=== PATIENT | male | born 1945 | race Caucasian/White ===

== ENCOUNTER → 2023-05-17 09:11 | Outpatient (REF) | payer OTHER, SELFPAY | LOC: HWRAD 09:11 | PROVIDERS: ATTENDING PHYSICIAN Family Medicine | DX: G62.9 Polyneuropathy, unspecified (principal) | CPT/HCPCS: 73630 ==

== ENCOUNTER 2023-11-30 07:09 | Emergency (ER) | payer OTHER, SELFPAY ==
[2023-11-30 07:11] VITALS: BP 124/95
--- NOTE | 2023-11-30 07:34 | ED.GENMED ---
Addendum entered and electronically signed by Johnny Sesay DO 12/02/23 06:59:
Patient reports stomach discomfort, since starting doxycycline. Will change to clindamycin. Follow-up with Dr. Hinds.
Original Note:
History of Present Illness
General
Chief Complaint: Skin Problem
Source: patient
Time Seen by Provider: 11/30/23 07:20
History of Present Illness
History of Present Illness:
78-year-old male presenting to the emergency department after noticing an erythematous lump on his back over the last 2 days. Patient states that he has had the lump for some years but it never bothered him. He believes that starting a new job and
working in a hot unair conditioned environment is the likely culprit. Today he noticed a little bit more erythema along the lateral aspect of the lump which is what prompted him to come in. He denies any fevers, chills, rigors. No history of
diabetes. No other concerns at this time. Patient does state that he has had 1 previous sebaceous cyst removed previously
Past History
Past History
ED Past Medical History: GERD and HTN
ED Past Surgical History: Cholecystectomy and Orthopedic
Social History
Tobacco: Non-smoker
Alcohol: Occasional
Drug: None
Personal:
Living: with family
Employment: Employed ([employer])
Review of Systems
Review of Systems
All Other Systems: ROS reviewed and negative except as documented in HPI and ROS
Phy Exam
Physical Exam
Physical Exam:
GENERAL: Alert , in no apparent distress
EYE: conjunctiva clear
Head: Normocephalic atraumatic
NECK: Supple,
ENT: mmm.
LUNGS: no acute respiratory distress
NEUROLOGICAL: Alert and oriented
SKIN: Warm and dry, large 2-1/2 to 3 cm sebaceous cyst to the left upper back along the distal portion of the scapula. The lateral aspect is erythematous and there is small drainage of sebaceous material that was expressed. Mildly tender to
palpation.
MUSCULOSKELETAL: well perfused.
PSYCH: Normal and appropriate interaction.
Scores
Heart Failure Risk
Heart Failure Risk Score: Not Applicable
Heart Score for Chest Pain Patients
STEMI patient?: Not applicable
Withdrawal Assessment of Alcohol
Withdrawal Assessment Completed?: Not applicable
Course
Vital Signs
Initial and Last Documented VS:
Initial Vital Signs
Temp Pulse Resp BP Pulse Ox
97.7 F 53 16 124/95 96
11/30/23 07:11 11/30/23 07:11 11/30/23 07:11 11/30/23 07:11 11/30/23 07:11
Last Documented Vital Signs
Temp Pulse Resp BP Pulse Ox
97.7 F 53 16 124/95 96
11/30/23 07:11 11/30/23 07:11 11/30/23 07:11 11/30/23 07:11 11/30/23 07:11
MDM/Problems Addressed
Differential Diagnosis Includes:
Sebaceous cyst, abscess, cellulitis
MDM/Problems Addressed:
78-year-old male presenting to the emergency department for evaluation of what appears to be an infected sebaceous cyst. Notes he has had a lump there for many years. Attributes the infection to starting a new job and working in a hot environment
for many hours. His exam does reveal infected sebaceous cyst. Given the size of the cyst I did feel it would be best served being removed by either general surgery or dermatology but I did offer incision and drainage with attempt at capsule
removal however patient declines and prefers to follow-up with general surgery with whom he is seen in the past. In the meantime we will place patient on doxycycline. Advised on warm compresses, NSAIDs/Tylenol as needed for pain. Patient aware of
return precautions to the ER but is otherwise stable for discharge home.
*Pulse Oximetry
Patient hypoxic: no
*Critical Care Note
Total Time (30-74mins, 75-104mins- exclusive of procedures): Not Applicable
ED Attending Note
-
Portions of this chart may have been created with voice recognition software.� Occasional wrong word or��sound alike� substitutions may have occurred due to the inherent limitations of voice recognition software.
Discharge Plan
Departure
Patient Disposition: Home (Routine Discharge)
Date of Disposition: 11/30/23
Time of Disposition: 07:34
Patient with high blood pressure during this ER visit?: No
Discharge Problem:
Infected sebaceous cyst
Instructions: Epidermal Cyst (DC)
Prescriptions:
New
doxycycline hyclate 100 mg tablet
100 mg PO BID 10 Days Qty: 20 0RF
No Action
omeprazole magnesium [Prilosec OTC] 20 MG tablet,delayed release (DR/EC)
20 mg PO DAILY
multivitamin [One Daily Multivitamin] 1 EACH tablet
1 ea PO DAILY
aspirin 81 MG tablet,delayed release (DR/EC)
81 mg PO DAILY
lisinopril 10 MG tablet
10 mg PO DAILY
celecoxib [Celebrex] 200 mg Capsule
200 mg PO DAILY
solifenacin [Vesicare] 5 mg Tablet
5 mg PO HS
Myrbetriq 50 mg Tablet Extended Release 24 Hr
50 mg PO DAILY
acetaminophen [Tylenol Extra Strength] 500 mg tablet
1,000 mg PO Q6HPRN PRN (Reason: mild pain) Qty: 1 0RF
oxycodone 5 mg tablet
5 mg PO Q4HPRN PRN (Reason: breakthrough/severe pain) Qty: 10 0RF
Referrals:
Van Penny DO [Family Provider] -
Alec Hinds MD [Active] -
Interventions
Interventions:
*Risk Screen - Suicide Last Done: 11/30/23 07:11
*General Assessment Last Done: 11/30/23 07:11
*Neglect/Abuse Screening Last Done: 11/30/23 07:11
ED- Fall Risk Assessment Last Done: 11/30/23 07:20
*Nursing Disposition Last Done: 11/30/23 07:20
ED-Skin Assessment Last Done: 11/30/23 07:20
Discharge Date and Time
Discharge Date/Time: 11/30/23 07:25
Print Language: MALTESE
== END 2023-11-30 07:25 | disposition home or self-care (01) ==
LOC: EMR 07:09
PROVIDERS: EMERGENCY PHYSICIAN Emergency Medicine; FAMILY PHYSICIAN Family Medicine
DX: L08.9 Local infection of the skin and subcutaneous tissue, unspecified (principal); L72.3 Sebaceous cyst; K21.9 Gastro-esophageal reflux disease without esophagitis; I10 Essential (primary) hypertension
CPT/HCPCS: 99282

== ENCOUNTER 2024-10-25 14:50 | Observation (INO) | payer OTHER, SELFPAY ==
[2024-10-25] VITALS (7 sets, daily range): BP systolic 152–190; BP diastolic 81–115; BMI 30.2; BMI 29.9
--- NOTE | 2024-10-25 11:13 | ED.GENMED ---
History of Present Illness
General
Chief Complaint: Numbness
Source: patient and family
Exam Limitations: none
Time Seen by Provider: 10/25/24 10:53
Nursing documentation reviewed up to this point in time: agreed with
History of Present Illness
History of Present Illness:
79-year-old male hypertension peripheral neuropathy presents with left arm numbness and weakness started around 930 lasted around 30 minutes with visual changes, unable to write clearly with his affected left hand, yesterday he had pain in his neck
did not think too much of it, suffers from hypertension is on lisinopril, not on aspirin states that the physician told him it could interact with some of his other meds, he is now is feeling Hydrocet better no headache no nausea no vomiting no arm
or leg weakness no prior TIA or stroke
If applicable-neuro sx onset
Onset of symptoms known: Yes
Date of onset of symptoms: 10/25/24
Time of onset of symptoms: 09:29
Past History
Past History
ED Past Medical History: GERD and HTN
ED Past Surgical History: Appendectomy, Cholecystectomy and Orthopedic
Social History
Tobacco: Non-smoker
Alcohol: None
Drug: None
Personal:
Living: with family
Employment: Employed ([employer])
Review of Systems
Review of Systems
All Other Systems: Not applicable
Constitutional: Denies fever or fatigue
EENT: Reports no symptoms
Respiratory: Reports no symptoms
Cardiac: Reports no symptoms
ABD/GI: Reports no symptoms
Musculoskeletal: Reports neck pain (Yesterday)
Neurological: Reports weakness, numbness and other (Visual changes); Denies headache
Hematologic/Lymphatic: Reports no symptoms
Psychiatric: Reports no symptoms
Phy Exam
Physical Exam
Physical Exam:
Physical Exam
General: no apparent distress, not acutely ill
Neck: No jaundice
Heart: s1/s2 regular rate and rhythm, no murmur. equal radial pulses.
Lungs: no acute respiratory distress. clear bilaterally
Abdomen: Nontender
Neuro: alert and oriented. no focal neurological deficits
Skin: no rash
Psychiatric: well kept. interactive and cooperative
Extremities: no edema.
Course
Orders/Labs/Results
Orders:
Orders
10/25/24 11:05
EKG [Electrocardiogram (*1)] Urgent
Reason for Study: Chest Pain
10/25/24 11:07
C-Reactive Protein Urgent
Comment: ADD ON
Complete Blood Count/With Diff Urgent
Comprehensive Metabolic Panel Urgent
Erythrocyte Sed Rate Urgent
Comment: ADD ON
Troponin I Urgent
Urinalysis Reflex To Culture Urgent
Date Specimen was Collected: 10/25/24
Time Specimen was Collected: 11:05
Urine Microscopic Reflex Cult Urgent
Urine Culture Urgent
CASSANDRA Source: U
Specimen Description:
Date Specimen was Collected: 10/25/24
Time Specimen was Collected: 11:05
10/25/24 11:13
CT Head & Neck Angio W/wo IV Urgent
Comment:
Reason For Exam: Visual change left arm weakness
10/25/24 14:15
Aspirin 325 mg PO NOW STA
Clopidogrel Bisulfate [Plavix] 300 mg PO NOW STA
10/25/24 14:31
NEUROLOGY CONSULT Routine
Consulting Provider: Reny Bar
Was physician already notified: Yes
Reason for consult: TIA
Clopidogrel Bisulfate [Plavix] 300 mg PO NOW STA
10/25/24 14:32
Admit/Transfer Patient As Directed
Co-Sign Provider:
Level of Care: Observation services
Assign to:: Telemetry
Physician / Group: hospitalist
Diagnosis: TIA
Reason for Telemetry: CVA/TIA
Date to Stop Telemetry: 10/28/24
Time to Stop Telemetry: 11:00
PRN Pain Medication Management As Directed
May give lesser potent ordered pain med per pt: Yes
preference::
Protocol:: Medication orders for pain may be administered in a
manner that supports deferring to patient preference
when the pt is:
- Requesting an ordered lesser potent pain medication.
Least to most potent pain medications are defined
as: acetaminophen < NSAID < tramadol < opioids
(morphine, oxycodone, hydromorphone).
- Requesting a lesser dose of the same medication IF
ORDERED.
- Requesting a less intrusive route of administration
if both routes are prescribed by the provider (PO <
IV).
10/25/24 14:34
Code Status As Directed
Resuscitation Status: Full Code
10/25/24 14:37
Add On- LAB Urgent
Tests Added?: ESR, CRP
10/25/24 14:41
Echo 2D MMode Color/Doppler Routine
Reason for Study: TIA
MRI Brain [MR Brain Without Contrast] Routine
Comment:
Reason For Exam: TIA
Recent pill cam endoscopy?: No
10/25/24 14:46
HydrALAZINE [Apresoline] 5 mg IV Q6HPRN PRN
10/25/24 16:49
Acetaminophen [Tylenol/Feverall] 650 mg RECTAL Q4HPRN PRN
Acetaminophen [Tylenol] 650 mg PO Q4HPRN PRN
10/25/24 16:49
Case Management Consult ONCE
Case Management Consult: Discharge Planning
Comment: stroke/tia
DIETARY IP CONSULT Routine
Reason for Consult: stroke/TIA
Training Specialist Urgent
Complete Blood Count/No Diff Routine
PTT Routine
Prothrombin Time Routine
Activity As Directed
Activity Level: Out of Bed-Early Mobility
NIH Stroke Scale As Directed
Directions: Per protocol
Comment: every shift and with any change in condition or mental status
Neurological Checks As Directed
Frequency: q4h
Additional Instructions:: q4h x 24h upon admission to the floor, then qshift & with any change in condition
and mental status
Patient Education As Directed
Type: Stroke education packet
Comment: provide to patient and family
Pneumatic Compression Sleeves As Directed
Type: Knee high
Swallow Screening CVA/TIA ONLY As Directed
Comment: NPO until swallowing screening completed
If patient FAILS swallow screening:: NPO, Speech Therapy consult, Aspiration Precautions
If patient PASSES swallow screening, diet:: Regular
Vital Signs As Directed
Frequency: Per unit guidelines
Ot Eval And Treat Routine
Pt Eval And Treat Routine
Activity Level: Out of Bed-Early Mobility
Speech Therapy Eval & Treat Routine
DX Deep Vein Thrombosis Video Routine
10/25/24 18:00
Atorvastatin [Lipitor] 80 mg PO QPM
10/25/24 22:00
solifenacin [Vesicare] 5 mg PO HS
10/26/24 06:00
Cardiovascular Evaluation IN AM
Comprehensive Metabolic Panel IN AM
Folate IN AM
Glycohemoglobin (HgbA1c) IN AM
Magnesium IN AM
TSH Reflex To Free T4 IN AM
Vitamin B12 IN AM
Vitamin D, 25-OH IN AM
10/26/24 08:00
Aspirin Chewable [Low Strength Aspirin] 81 mg PO DAILY
Clopidogrel Bisulfate [Plavix] 75 mg PO DAILY
Lisinopril [Zestril] 10 mg PO DAILY
omeprazole magnesium [Prilosec OTC] 20 mg PO DAILY
10/28/24 11:00
DC Protocol for Telemetry ONCE
Abnormal Lab Results
10/25/24
11:07
Absolute Neuts (auto) 7.7 H 10^3/uL
(1.4-6.5)
Absolute Monos (auto) 0.7 H 10^3/uL
(0.1-0.6)
Lymphocytes % 19.9 L %
(20.5-51.1)
Chloride 110 H mmol/L
(98-107)
Glucose 123 H mg/dl
(70-99)
Ur Occult Blood Reflex 1+ A
(Negative)
Leukocyte Esterase Rfl 1+ A
(Negative)
Urine Bacteria (Reflex) Few A
(Negative)
Urine Albumin (Reflex) 2+ A
(Neg - Trace)
10/25/24 11:07
10/25/24 11:07
Vital Signs
Initial and Last Documented VS:
Initial Vital Signs
Temp Pulse Resp BP Pulse Ox
98.4 F 77 18 169/115 96
10/25/24 10:24 10/25/24 10:24 10/25/24 10:24 10/25/24 10:24 10/25/24 10:24
Last Documented Vital Signs
Temp Pulse Resp BP Pulse Ox
97.8 F 67 18 186/101 95
10/25/24 17:06 10/25/24 17:06 10/25/24 17:06 10/25/24 17:06 10/25/24 17:06
MDM/Problems Addressed
Differential Diagnosis Includes:
TIA CVA mass seizure Clayton's paralysis peripheral neuropathy
MDM/Problems Addressed:
Left arm numbness and weakness visual change
Chronic conditions affecting care: HTN
Acute Exacerbation and/or Progression of Chronic Illness: HTN
*Pulse Oximetry
SaO2: 96
Oxygen Mode of Delivery: Room air
Patient hypoxic: no
*EKG
Interpreted by ED Provider?: Yes
Interpretation: normal
Comparison EKG: no comparison EKG present
Heart Rate: 78
Rate: normal
Rhythm: sinus
Ischemia: no ischemia
*Film Vault Supervisor Interpretation
Rate: normal
Interpretation: normal
Heart Rate: 78
Rhythm: sinus
*Critical Care Note
Total Time (30-74mins, 75-104mins- exclusive of procedures): Not Applicable
ED Attending Note
-
Portions of this chart may have been created with voice recognition software.� Occasional wrong word or��sound alike� substitutions may have occurred due to the inherent limitations of voice recognition software.
Discharge Plan
Departure
Patient Disposition: Admit
Date of Disposition: 10/25/24
Time of Disposition: 14:26
Admit to: Telemetry
Presentation/result/management discussed w/ accepting MD/DO: Hospitalist
Patient with high blood pressure during this ER visit?: Yes
Condition: Good
Discharge Problem:
Brain TIA
Interventions
Interventions:
*Risk Screen - Suicide Last Done: 10/25/24 10:24
*General Assessment Last Done: 10/25/24 10:24
*Neglect/Abuse Screening Last Done: 10/25/24 10:24
*ED- Fall Risk Assessment Last Done: 10/25/24 12:00
*Nursing Disposition Last Done: 10/25/24 16:35
ED- Neurological Assessment Last Done: 10/25/24 11:06
ED Swallowing Screen Last Done: 10/25/24 11:06
Discharge Date and Time
Discharge Date/Time: 10/25/24 16:35
[2024-10-25 11:28] LABS: Hematocrit 46.2 % (39.0-52.0); Hemoglobin 15.6 g/dL (13.0-18.0); Mean Corp Hgb Conc. 33.8 g/dL (33.0-37.0); Mean Corpuscular Volume 89.2 fL (80.0-94.0); Platelet Count 249 10^3/uL (130-400); Red Cell Dist. Width 14.3 % (11.5-14.5)
[2024-10-25 11:39] LABS: Urine Character Clear (Clear)
[2024-10-25 11:51] LABS: Urine Red Blood Cell 0-2 /HPF (0-2); Urine Squamous Cell 0-2 /LPF (Few); Urine White Cell 0-2 /HPF (0-5)
[2024-10-25 11:56] LABS: ALT (SGPT) 16 U/L (0-50); AST (SGOT) 20 U/L (17-59); Albumin 4.4 g/dl (3.5-5.0); Alkaline Phosphatase 52 U/L (38-126); Blood Urea Nitrogen 13 mg/dl (9-20); Calcium 9.6 mg/dl (8.4-10.2); Carbon Dioxide 26 mmol/L (22-30); Chloride 110 mmol/L (98-107); Estimated Creatinine Clearance 89 ml/min; Glucose 123 mg/dl (70-99); Potassium 4.6 mmol/L (3.5-5.1); Sodium 140 mmol/L (135-145); Total Protein 6.6 g/dl (6.3-8.2); eGFR > 60.00
[2024-10-25 11:58] LABS: Nucleated Red Blood Cells % 0 % (-)
[2024-10-25 12:07] LABS: Troponin I < 0.012 ng/ml
--- NOTE | 2024-10-25 14:23 | CON.NEURO ---
Consultation
Order
Date of Consultation: 10/25/24
Requesting Provider: Bennie De Jesus MD
Reason for Consult: TIA
Neurology Consultation Note.
HPI: This is a 79-year-old man who presented to [facility] on 10/25/2024 with transient sensory, motor and visual deficits.
The patient reports that while watching TV, he experienced tightness in his left arm, described as feeling like wearing a blood pressure cuff, accompanied by pins and needles sensation. Simultaneously, he noticed blurry vision at the bottom of his
visual field, possibly on the left side. The tightness lasted for approximately 10 minutes before subsiding, but the pins and needles sensation persisted, along with weakness in his left hand. He attempted to write a note but found his left hand to
be weak.
The patient states that the weakness in his left hand lasted for 35-45 minutes, while the tightness was present for only 10 minutes. He denies any involvement of his left leg, speech difficulties, or other symptoms. The visual disturbance resolved
concurrently with the arm tightness. He reports no associated headaches or chest tightness. The patient emphasizes that the tingling affected all fingers of his left hand and was different from his previous experiences with carpal tunnel syndrome.
His gait remained normal throughout the episode.
No reports of headaches, history of seizures with similar episodes in the past.
Regarding medications, the patient was previously taking baby aspirin but was asked to discontinue it, though he cannot recall the reason.
ER VS: 169/115-170/81, 53, afebrile
EKG: Sinus rhythm with first degree of AV block
Labs: Glucose 123, normal sodium, creatinine, WBCs.
UA positive for leukocyte esterase, bacteria
CT head wo contrast-no acute abnormalities.
CTA head/neck�no hemodynamically significant stenosis, diminished flow in the right proximal M2 branch suggesting stenosis
PMH: Prostate cancer, polyneuropathy, A-Fib, right iliac artery aneurysm HTN, DLP, GERD, SALVATORE, BPH, SNHL, burnham's esophagus, GIB, diverticulosis
PSH: Left pinky and nerve decompression at the wrist L TKA, appendectomy, cholecystectomy, tonsillectomy, Right inguinal/femoral hernia repair, umbilical hernia repair
SH: , non-smoker, works at [employer]
FH: Father�dementia, in his 70s, mother had end-stage renal disease
All:NKDA
ROS: Constitutional: Negative. Negative for chills, fever and unexpected weight change.
HEENT: Positive for chronic hearing impairment
Eyes: Positive for blurry vision in the lower left field, resolved.
Respiratory: Negative for cough, choking and shortness of breath.
Cardiovascular: Negative for chest pain, palpitations and leg swelling.
Gastrointestinal: Negative for abdominal pain and vomiting.
Endocrine: Negative. Negative for cold intolerance.
Genitourinary: Positive for urinary urgency and frequency
Musculoskeletal: Positive for soreness in both knees.
Skin: Negative for rash.
Allergic/Immunologic: Negative. Negative for immunocompromised state.
Neurological: Positive for transient left arm motor and sensory deficit, chronic distal paresthesias
Psychiatric/Behavioral: Negative for behavioral problems, confusion and hallucinations.
General: Well developed. In no acute distress.
Cardio: Regular rate and rhythm without murmur. Extremities are without cyanosis or edema.
Neuro:
Mental Status: Alert, oriented to person, place, and date. Normal attention and recall. Good fund of knowledge. Follows complex requests across the midline. Comprehension, naming, and repetition intact.
Cranial Nerves: Pupils are equally round and reactive to light. EOMs full. Visual davey full to confrontation. No ptosis. No nystagmus. V1-V3 intact to light touch and pinprick bilaterally, symmetric. Face symmetric. Poor hearing AU. The
palate elevated well. SCMs and traps 5/5. Tongue midline. No dysarthria.
Motor: Normal bulk and tone. No pronator or arm drift. Strength 5/5 throughout. No clonus.
Reflexes: 2+ throughout the upper extremities and trace knees. 0/2 in AJs. Plantar responses flexor bilaterally.
Sensory: Absent vibration at the toes and ankles and preserved in the knees. No extinction to DSS
Coordination: No dysmetria or tremor.
Gait: deferred
Assessment and Plan:
I. TIA. Right proximal M2 stenosis.
II. Hypertensive urgency
III. Distal large/small fiber polyneuropathy
-Continue Telemetry monitoring
-Avoid cerebral hypoperfusion in view of right M 2 stenosis.
-Cautious lowering of BP by approximately 15 % during the first 24 hours is SBP >220 mmHg or diastolic blood pressure >120 mmHg
-Restart antihypertensive medications if BP>140/90 mmHg and neurologically stable in 24 to 48 hours after stroke onset
- DAPT for 21 days.
- Brain MRI without salvatore
- TTE
- Lipitor 40 mg QHS.
- Please check HbA1C, LDL.
- Will consider routine EEG based on clinical course
- DVT prophylaxis.
I personally reviewed all radiology and labs along with past medical records pertinent to current medical problems. Total time spent in patient care is 60 minutes.
Thank you for allowing us to participate in the care of this patient. We will continue to follow. Please do not hesitate to contact us with any questions or concerns.
Subjective/Objective
Subjective Data
Date of Service: October 25, 2024
Objective Data
Vital Signs
Temp Pulse Resp BP Pulse Ox
36.9 C 77 18 170/81 96
10/25/24 10:24 10/25/24 10:24 10/25/24 10:24 10/25/24 11:00 10/25/24 11:14
Lab Results
10/25/24 11:07
10/25/24 11:07
Sodium 140 mmol/L (135-145) 10/25/24 11:07
Potassium 4.6 mmol/L (3.5-5.1) 10/25/24 11:07
BUN 13 mg/dl (9-20) 10/25/24 11:07
Glucose 123 mg/dl (70-99) H 10/25/24 11:07
Calcium 9.6 mg/dl (8.4-10.2) 10/25/24 11:07
Patient Allergies
cat dander Allergy (Verified 10/25/24 10:24)
drippy eyes nose
pollen extracts Allergy (Verified 10/25/24 10:24)
hayfever
Medications
-
Active Medications
Generic Name Dose Route Start Last Admin
Trade Name Freq PRN Reason Stop Dose Admin
Aspirin 325 mg 10/25/24 14:15
Aspirin 325 Mg Tablet PO 10/25/24 14:16
NOW STA
Clopidogrel Bisulfate 300 mg 10/25/24 14:15
Clopidogrel 300 Mg Tablet PO 10/25/24 14:16
NOW STA
Home Medications
�Medication �Instructions �Recorded
omeprazole magnesium 20 mg 20 mg PO DAILY 06/15/12
tablet,delayed release (Prilosec
OTC)
multivitamin (One Daily 1 ea PO DAILY 05/07/18
Multivitamin tablet)
aspirin 81 mg tablet,delayed 81 mg PO DAILY 01/29/20
release
lisinopril 10 mg tablet 10 mg PO DAILY 01/29/20
celecoxib 200 mg capsule (Celebrex) 200 mg PO DAILY 08/07/22
mirabegron 50 mg tablet,extended 50 mg PO DAILY 08/07/22
release 24 hr (Myrbetriq)
solifenacin 5 mg tablet (Vesicare) 5 mg PO HS 08/07/22
acetaminophen 500 mg tablet 1,000 mg (2 x 500 mg) PO Q6HPRN 08/13/22
(Tylenol Extra Strength) PRN mild pain #1 tab
oxycodone 5 mg tablet 5 mg PO Q4HPRN PRN 08/13/22
breakthrough/severe pain #10 tabs
doxycycline hyclate 100 mg tablet 100 mg PO BID 10 days #20 tabs 11/30/23
clindamycin HCl 150 mg capsule 450 mg (3 x 150 mg) PO TID 7 days 12/02/23
#63 caps
Vital Signs and Labs
-
Vital Signs and Labs:
Vital Signs
Temp Pulse Resp BP Pulse Ox
36.9 C 77 18 170/81 96
10/25/24 10:24 10/25/24 10:24 10/25/24 10:24 10/25/24 11:00 10/25/24 11:14
Lab Results
10/25/24 11:07
10/25/24 11:07
Sodium 140 mmol/L (135-145) 10/25/24 11:07
Potassium 4.6 mmol/L (3.5-5.1) 10/25/24 11:07
BUN 13 mg/dl (9-20) 10/25/24 11:07
Glucose 123 mg/dl (70-99) H 10/25/24 11:07
Calcium 9.6 mg/dl (8.4-10.2) 10/25/24 11:07
Medications
-
Medications:
Generic Name Dose Route Start Last Admin
Trade Name Freq PRN Reason Stop Dose Admin
Aspirin 325 mg 10/25/24 14:15
Aspirin 325 Mg Tablet PO 10/25/24 14:16
NOW STA
Clopidogrel Bisulfate 300 mg 10/25/24 14:15
Clopidogrel 300 Mg Tablet PO 10/25/24 14:16
NOW STA
Home Medications
-
Home Medications
omeprazole magnesium 20 mg tablet,delayed release (Prilosec OTC) 20 mg PO DAILY 06/15/12
multivitamin (One Daily Multivitamin tablet) 1 ea PO DAILY 05/07/18
aspirin 81 mg tablet,delayed release 81 mg PO DAILY 01/29/20
lisinopril 10 mg tablet 10 mg PO DAILY 01/29/20
celecoxib 200 mg capsule (Celebrex) 200 mg PO DAILY 08/07/22
mirabegron 50 mg tablet,extended release 24 hr (Myrbetriq) 50 mg PO DAILY 08/07/22
solifenacin 5 mg tablet (Vesicare) 5 mg PO HS 08/07/22
acetaminophen 500 mg tablet (Tylenol Extra Strength) 1,000 mg (2 x 500 mg) PO Q6HPRN PRN mild pain #1 tab 08/13/22
oxycodone 5 mg tablet 5 mg PO Q4HPRN PRN breakthrough/severe pain #10 tabs 08/13/22
doxycycline hyclate 100 mg tablet 100 mg PO BID 10 days #20 tabs 11/30/23
clindamycin HCl 150 mg capsule 450 mg (3 x 150 mg) PO TID 7 days #63 caps 12/02/23
--- NOTE | 2024-10-25 14:36 | HPS.HSE ---
Family Physician
-
Family Physician: Van Penny
Chief Complaint
-
LUE numbness, blurry vision
History of Present Illness
79yo M with PMHx of GERD, neuropathy, DJD, HTN came with episode of LUE numbness and tingling with blurry vision lasted for up to an hour, then resolved. Started appr 5 hours before admisison. Never had that before. As per patient - he stopped his
ASA 81mg due to his doctor concern for come medication interaction appr 3 months ago. In ED patient is asymptomatic with elevated BP. No arrhythmia on EKG, some non-specific T-wave abnormality with 1st degree AV block. CTA head with No M1 and M2
occlusion. However, diminished flow in the right proximal M2 branch suggesting stenosis
Medical History
Past Medical History
Past Medical History: Reports Other
Additional Past Medical History:
See above
Past Surgical History: Reports Other
Additional Past Surgical History:
L knee replacement with revision
Social History
Tobacco: Non-smoker
Alcohol: None
Drug: None
Family History
Family History: Not pertinent
Allergies / Home Medications
Allergies reflects when Allergies were last updated in [facility].
Home Medications with original date entered in [facility]
Allergy/Medication List:
Allergies
Allergy/AdvReac Type Severity Reaction Status Date / Time
cat dander Allergy sangeeta Verified 10/25/24 10:24
eyes nose
pollen extracts Allergy hayfever Verified 10/25/24 10:24
Home Medications - not up to date
omeprazole magnesium 20 mg tablet,delayed release (Prilosec OTC) 20 mg PO DAILY 06/15/12
multivitamin (One Daily Multivitamin tablet) 1 ea PO DAILY 05/07/18
aspirin 81 mg tablet,delayed release 81 mg PO DAILY 01/29/20
lisinopril 10 mg tablet 10 mg PO DAILY 01/29/20
mirabegron 50 mg tablet,extended release 24 hr (Myrbetriq) 50 mg PO DAILY 08/07/22
solifenacin 5 mg tablet (Vesicare) 5 mg PO HS 08/07/22
acetaminophen 500 mg tablet (Tylenol Extra Strength) 1,000 mg (2 x 500 mg) PO Q6HPRN PRN mild pain #1 tab 08/13/22
oxycodone 5 mg tablet 5 mg PO Q4HPRN PRN breakthrough/severe pain #10 tabs 08/13/22
Review of Systems
-
History Source: Patient
A 12 point ROS was completed and negative except as noted: Yes
Physical Exam
Vital Signs
Vital Signs
Temp Pulse Resp BP Pulse Ox
98.4 F 77 18 170/81 96
10/25/24 10:24 10/25/24 10:24 10/25/24 10:24 10/25/24 11:00 10/25/24 11:14
Physical Exam
General: Well Developed, Well Nourished and No Apparent Distress
HEENT: NormoCephalic, Anicteric and Moist mucous membranes
Respiratory: Clear; No Wheezes or Crackles
Cardiac: S1/S2 and Regular Rhythm; No Murmur
GI: Soft, Non Tender and Non Distended
Genito-urinary: Clear Urine
Musculoskeletal: No Clubbing, No Cyanosis and No Edema
Skin: Warm
Neuro: Awake, Alert, Oriented and AO x 3
Psych: Calm
Laboratory Results
-
10/25/24 11:07
10/25/24 11:07
Laboratory Results
Total Bilirubin 0.5 mg/dl (0.2-1.3) 10/25/24 11:07
AST 20 U/L (17-59) 10/25/24 11:07
ALT 16 U/L (0-50) 10/25/24 11:07
Alkaline Phosphatase 52 U/L (38-126) 10/25/24 11:07
Troponin I < 0.012 ng/ml 10/25/24 11:07
Data Reviewed
-
CT Scan: Report Reviewed by me
Lab Data: Labs Reviewed by me
Impression/Plan
-
A/P:
#TIA
with diminished flow in the right proximal M2 branch suggesting stenosis
ASA, Plavix, Statin
Permissive HTN, restart BP meds in AM
Hydralazine (since AVB on EKG) PRN for SBP>185/DBP>105
Echo, telemetry
Neurology consult
neurochecks as per protocol
check TSH, HGBa1c, Lipids, PT/PTT
#Essential HTN
#HLD
#DJD
#Urinary retention
cont home meds
DVT ppx SCDs
Full code
I have spent at least 77min admitting the patient
--- NOTE | 2024-10-25 15:15 | CM ---
CM reviewed chart and met with pt bedside in ED. Lives in [address] [place] [address] [place] with his , 3 ELIN, first floor half BA, his is currently living with their daughter helping care for her children.
Pt is independent in ADLs, personal care and ambulation at baseline. 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
Pt does have RW and SPC from prior surgery, not using either at present time.
No hx VN/SNF.
PCP: Van Penny
Pharmacy: [facility] in [place]
Discharge plan: Anticipate home, watch for needs
[2024-10-25] MEDS: ASPIRIN 325 MG PO (15:43)
[2024-10-25] MEDS: PLAVIX 300 MG PO (15:43)
[2024-10-25 15:57] LABS: C-Reactive Protein < 5.00 mg/L (0.0-10.00)
[2024-10-25] MEDS: LIPITOR 40 MG PO (18:12)
[2024-10-25 18:26] LABS: Hematocrit 45.4 % (39.0-52.0); Hemoglobin 15.0 g/dL (13.0-18.0); Mean Corp Hgb Conc. 33.0 g/dL (33.0-37.0); Mean Corpuscular Volume 88.7 fL (80.0-94.0); Platelet Count 250 10^3/uL (130-400); Red Cell Dist. Width 14.0 % (11.5-14.5)
[2024-10-25 18:37] LABS: INR 1.01; PT 13.7 Sec (11.4-14.6)
[2024-10-25 18:38] LABS: APTT 26.0 Sec (23.4-35.0)
[2024-10-25 18:54] LABS: HDL Cholesterol 38 mg/dl; LDL Cholesterol, Calculated 105 mg/dl; Very Low Density Lipoprotein 26 mg/dl (0-30)
[2024-10-25 19:37] LABS: Vitamin B12 816 pg/ml (239-931)
[2024-10-25] MEDS: DETROL LA 2 MG PO (20:31)
[2024-10-25] MEDS: APRESOLINE 5 MG IV (22:35)
--- NOTE | 2024-10-25 23:32 | PTCARENOTE ---
Patient made RN and PCT aware that he wanted to leave. Adi
--- NOTE | 2024-10-25 23:32 | W.PN.UPDATE ---
Update Note
Progress Note Update
Called to the bedside as the patient is requesting to leave AMA.
Patient is alert and oriented x3. requested to leave AMA. Risks discussed with the patient but he decided to leave.
AMA form signed and kept in the chart.
--- NOTE | 2024-10-25 23:32 | PTCARENOTE ---
Patient made RN and PCT aware that he wanted to leave AMA. Patient AAOx3, VSS. NIH 0. FINGERNAIL TECHNICIAN made aware, came to the floor to see patient. Patient stated he wanted to go home and did not want to wait for his MRI tomorrow. IV removed, biodiesel production associate
removed. Educated on risks of leaving AMA. Paperwork signed. Patient called for ride home.
== END 2024-10-25 23:41 | disposition left against medical advice (07) ==
LOC: 4 EAST ACU 14:50
PROVIDERS: ADMITTING PHYSICIAN Internal Medicine; CONSULT PHYSICIAN Psychiatry & Neurology Neurology; EMERGENCY PHYSICIAN Emergency Medicine; FAMILY PHYSICIAN Family Medicine
DX: G45.9 Transient cerebral ischemic attack, unspecified (principal); I16.0 Hypertensive urgency; Z53.29 Procedure and treatment not carried out because of patient's decision for other reasons; K21.9 Gastro-esophageal reflux disease without esophagitis; G62.9 Polyneuropathy, unspecified; I10 Essential (primary) hypertension; M19.90 Unspecified osteoarthritis, unspecified site; E78.5 Hyperlipidemia, unspecified; N40.1 Benign prostatic hyperplasia with lower urinary tract symptoms; R33.8 Other retention of urine; Z79.1 Long term (current) use of non-steroidal anti-inflammatories (NSAID); Z79.82 Long term (current) use of aspirin; Z79.891 Long term (current) use of opiate analgesic; Z79.899 Other long term (current) drug therapy; I48.91 Unspecified atrial fibrillation
CPT/HCPCS: 70496; 70498; 80053; 80061; 81003; 81015; 82607; 84484; 85025; 85027; 85610; 85652; 85730; 86140; 87086; 93005; 99285; G0378; Q9967

== ENCOUNTER → 2024-10-30 13:58 | Outpatient (REF) | payer OTHER, SELFPAY | LOC: HWRAD 13:58 | PROVIDERS: ATTENDING PHYSICIAN Family Medicine | DX: I10 Essential (primary) hypertension (principal) | CPT/HCPCS: 93975 ==